=== PATIENT | female | born 1980 | race Caucasian/White ===

== ENCOUNTER 2017-11-20 21:30 | Emergency (ER) | payer MEDICAID ==
[~2017-11-20] VITALS: Ht 162.6 cm; Wt 68.0 kg
[2017-11-20 21:40] VITALS: BP 120/64
== END 2017-11-20 22:00 | disposition left against medical advice (07) ==
LOC: ER 21:30
DX: R10.9 Unspecified abdominal pain (principal); Z53.21 Procedure and treatment not carried out due to patient leaving prior to being seen by health care provider